=== PATIENT | male | born 1975 | race Caucasian/White ===

== ENCOUNTER 2019-02-21 20:17 | Inpatient (IN) | payer MEDICAID, OTHER ==
[~2019-02-21] VITALS: Ht 185.4 cm; Wt 111.1 kg
--- NOTE | 2019-02-21 20:23 | NUR ---
PT BIBA BLS TO [facility]
[2019-02-21 20:24] VITALS: BP 132/91
[2019-02-21] MEDS ORDERED: NACL 0.9% 1,000 ML IV ONE (20:27)
--- NOTE | 2019-02-21 20:43 | NUR ---
PT TX TO ER BED 8 VIA W/C
--- NOTE | 2019-02-21 21:14 | NUR ---
PT C/O BLOOD IN STOOL AND URINE X3 DAYS. PT ALSO STATES UNABLE TO AMBULATE DUE TO NUMBNESS IN LT SIDE FROM WAIST DOWN. PT STATES INCONTINENT SINCE NUMBNESS OCCURED. ABD PAIN W/ N/V/D. ABD SOUNDS X4 QUAD. PT SITTING IN BED PLEASANT. VSS AT THIS TIME MEDHX: ASTHMA, ANXIETY, SEIZURES, CARDIAC DISEASE ALLERGIES: TORADOL
--- NOTE | 2019-02-21 21:19 | NUR ---
DR. SMITH BEDSIDE EVALUATING PT
[2019-02-21] MEDS ORDERED: MORPHINE SULFATE 4 MG/ML SYR IVP ONE ×2 (21:25→23:10)
[2019-02-21] MEDS ORDERED: ONDANSETRON 4 MG/2 ML VIAL IVP ONE (21:25)
--- NOTE | 2019-02-21 21:32 | NUR ---
PT AMBULATED TO RESTROOM WITH EMT.
[2019-02-21 21:46] LABS: BASOPHILS % (AUTO) 0.2 % (0.0-2.0); EOSINOPHILS # (AUTO) 0.2 K/uL (0-0.4); EOSINOPHILS % (AUTO) 2.8 % (0.0-4.0); HEMATOCRIT 42.5 % (36-52); HEMOGLOBIN 14.2 g/dL (12.0-18.0); LYMPHOCYTES # (AUTO) 1.5 K/uL (2.0-11.5); LYMPHOCYTES % (AUTO) 25.3 % (20.5-51.1); MEAN CORPUSCULAR HEMOGLOBIN 29 pg (27-31); MEAN CORPUSCULAR HGB CONC 33 g/dL (33-37); MEAN CORPUSCULAR VOLUME 88.4 fL (80-94); MONOCYTES # (AUTO) 0.4 K/uL (0.8-1.0); MONOCYTES % (AUTO) 7.1 % (1.7-9.3); NEUTROPHILS # (AUTO) 3.9 K/uL (1.8-7.7); NEUTROPHILS % (AUTO) 64.6 % (42.2-75.2); PLATELET COUNT (AUTO) 216 K/uL (140-450); RED BLOOD CELL COUNT(AUTO) 4.81 MIL/uL (4.20-6.10); RED CELL DISTRIBUTION WIDTH 14.1 % (11.6-13.7); WHITE BLOOD COUNT (AUTO) 6.1 K/uL (4.8-10.8)
[2019-02-21 22:09] LABS: ANION GAP 13.9 (8-16); CREATININE 0.9 mg/dL (0.7-1.3); POTASSIUM 3.9 mmol/L (3.5-5.1)
[2019-02-21 22:13] LABS: PROTHROMBIN TIME 9.4 secs (10.8-13.4)
[2019-02-21 22:14] LABS: ALBUMIN 3.6 g/dL (3.4-5.0); TOTAL BILIRUBIN 0.2 mg/dL (0.0-1.0)
[2019-02-21 22:19] LABS: APPEARANCE,URINE CLEAR (CLEAR); BARBITURATE, URINE NEG. ng/ml (NEG <=200); BENZODIAZEPINE, URINE NEG. ng/mL (NEG <=200); BILIRUBIN,URINE NEGATIVE (NEGATIVE); BLOOD, URINE NEGATIVE (NEGATIVE); CANNABINOID, URINE NEG. ng/mL (NEG <=50); COCAINE, URINE NEG. ng/mL (NEG <=300); COLOR,URINE YELLOW (YELLOW); LEUKOCYTE ESTERASE ,URINE NEGATIVE (NEGATIVE); NITRITE, URINE NEGATIVE (NEGATIVE); OPIATE, URINE NEG. ng/mL (NEG <=2000); PHENCYCLIDINE SCREEN,URINE NEG. ng/mL (NEG <=25); UGLUCOSE NEGATIVE (NEGATIVE)
--- NOTE | 2019-02-22 01:19 | NUR ---
PT RESTING IN BED WITH EYES CLOSED. BED IN LOWEST POSITION, BOTH SIDE RAILS UP. VSS. WILL CONTINUE TO MONITOR.
--- NOTE | 2019-02-22 01:29 | NUR ---
PT TAKEN TO CT VIA [facility]
[2019-02-22] MEDS ORDERED: EPINEPHrine 1:1000 - 1 MG/ML AMP ONE (01:47)
--- NOTE | 2019-02-22 01:54 | NUR ---
PATIENT IN CT FOR A SCAN. CALLED TO ASSIST PATIENT WHO APPEARS TO BE HAVING AN ALLERGIC REACTION TO THE SCAN IODINE OMNIPAQUE DYE. GAVE PT A HHN BREATHING TREATMENT OF ALBUTEROL 2.5MG. HEART RATE PRE 75 SPO2 ON NRB MASK 97.
[2019-02-22] MEDS ORDERED: methylPREDNISolone SS 125 MG/2 ML VIAL ONE (01:57)
[2019-02-22] MEDS ORDERED: diphenhydrAMINE 50 MG/ML VIAL ONE (01:57)
[2019-02-22] MEDS ORDERED: methylPREDNISolone SS 125 MG/2 ML VIAL IVP ONE (02:00)
[2019-02-22] MEDS ORDERED: EPINEPHrine 1:1000 - 1 MG/ML AMP IM ONE (02:00)
[2019-02-22] MEDS ORDERED: ALBUTEROL 0.083% 2.5 MG/3 ML NEBU INH ONE (02:00)
[2019-02-22] MEDS ORDERED: diphenhydrAMINE 50 MG/ML VIAL IVP ONE (02:00)
[2019-02-22] MEDS ORDERED: NACL 0.9% 1,000 ML IV ONE (02:00)
--- NOTE | 2019-02-22 02:03 | NUR ---
PT APPEARS TO HAVE REACTION TO CONTRAST DURING CT. BENADRYL AND SOLU MEDROL GIVEN. PT STATES NO DIFFICULTY BREATHING AT THIS TIME. ARMS CONTINUE TO BE ITCHY
--- NOTE | 2019-02-22 02:27 | NUR ---
PT RETURNED FROM CT VIA [facility]. NO DIFFICULTY BREATHING, VSS. WILL CONTINUE TO MONITOR
--- NOTE | 2019-02-22 02:34 | NUR ---
PT STATES HE CONTINUES TO BE ITCHY ON ARMS BILATERALLY. DR SMITH MADE AWARE.
--- NOTE | 2019-02-22 03:18 | NUR ---
02 SAT 90. PT PLACED ON 2L NC AT THIS TIME. O2 97% AT THIS TIME. WILL CONTINUE TO MONITOR.
[2019-02-22] MEDS ORDERED: ACETAMINOPHEN 325 MG TAB PO PRN (04:20)
[2019-02-22] MEDS ORDERED: KETOROLAC 30 MG/ML VIAL IVP PRN (04:20)
[2019-02-22] MEDS ORDERED: ONDANSETRON 4 MG/2 ML VIAL IM/IVP PRN (04:20)
[2019-02-22] MEDS ORDERED: HYDROcodone/APAP 7.5/325 MG 1 TAB PO PRN (04:20)
--- NOTE | 2019-02-22 06:32 | NUR ---
PT RESTING IN BED WITH EYES CLOSED, HOB DOWN. X2 SIDE RAILS. VSS. WILL CONTINUE TO MONITOR
[2019-02-22 07:17] LABS: CHOL/HDL RATIO 4.1 (1-4.5); FREE T4 (FREE THYROXINE) 0.71 ng/dL (0.76-1.46); PHOSPHORUS 4.1 mg/dL (2.5-4.9); THYROID STIMULATING HORMONE 4.58 uIU/mL (0.34-3.74)
[2019-02-22 07:50] VITALS: BP 116/73
--- NOTE | 2019-02-22 07:50 | NUR ---
RECEIVED REPORT FROM EMERGENCY ROOM NURSE FOR CONTINUITY OF CARE. PT IN STABLE CONDITION. RESPIRATIONS EVEN AND UNLABORED, ROOM AIR. IV INTACT AND PATENT. SAFETY MEASURES IN PLACE. BED IN LOW POSITION. BED ALARM ON. CALL LIGHT AT BEDSIDE. WILL CONTINUE TO MONITOR.
--- NOTE | 2019-02-22 07:55 | NUR ---
Patient will be admitted to care of DR. WHELAN. Admited to MS. Will go to room 105-A. Belongings list completed. Report to SHAI ENGEL.
--- NOTE | 2019-02-22 08:24 | NUR ---
PATIENT HAS BEEN SCREENED AND CATEGORIZED LOW NUTRITION RISK. PATIENT WILL BE SEEN WITHIN 7 DAYS OF ADMISSION. 02/28/[address]
--- NOTE | 2019-02-22 08:42 | NUR ---
PT REFUSED HEAD CT AT THIS TIME. WILL TRY AGAIN. PT IN STABLE CONDITION.
--- NOTE | 2019-02-22 10:15 | NUR ---
PT SLEEPING IN STABLE CONDITION. RESPIRATIONS EVEN AND UNLABORED. BED IN LOW POSITION. CALL LIGHT AT BEDSIDE. WILL CONTINUE TO MONITOR.
--- NOTE | 2019-02-22 11:03 | NUR ---
SW was unable to complete assessment with patient because patient was receiving a CT Scan, per Charge Nurse. SW will follow up as needed.
[2019-02-22] MEDS: NACL 0.9% 1,000 ML IV SCH ×2 (11:28→21:00)
[2019-02-22] MEDS: MORPHINE SULFATE 2 MG/ML SYR IVP PRN ×3 (11:44→20:50)
[2019-02-22] MEDS ORDERED: GABAPENTIN 300 MG CAP PO SCH (12:00)
--- NOTE | 2019-02-22 12:17 | NUR ---
FAXED MEDICAL RECORDS AUTHORIZATION TO [facility] [phone]
--- NOTE | 2019-02-22 14:22 | NUR ---
PT WALKING AROUND UNIT IN STABLE CONDITION.
[2019-02-22] MEDS ORDERED: LIDOCAINE OINTMENT 5% 35 GM TUBE TP SCH (15:20)
--- NOTE | 2019-02-22 15:50 | NUR ---
P.T. NOTES P.T. SHAY COMPLETED; PATIENT MAY AMBULATE AD MURALI. Addendum: 02/22/19 at 1550 by Jesika Tuttle PT Amended: Links added.
[2019-02-22 16:00] VITALS: BP 126/74
[2019-02-22] MEDS: HYDROcodone/APAP 7.5/325 MG 1 TAB PO SCH ×2 (16:00→20:00)
--- NOTE | 2019-02-22 16:00 | NUR ---
WILL TAKE NORCO AT 2000 SCHEDULED DOSE DUE TO MORPHINE REQUESTED AND GIVEN PER PT REQUEST.
[2019-02-22] MEDS: WARFARIN 5 MG TAB PO SCH (17:58)
[2019-02-22] MEDS: BACLOFEN 10 MG TAB PO SCH (18:09)
--- NOTE | 2019-02-22 18:55 | NUR ---
[facility] FOR SANDWICH PER PT REQUEST. PT IN STABLE CONDITION.
--- NOTE | 2019-02-22 19:22 | NUR ---
GAVE REPORT TO SACK SORTER NURSE ERIN FOR CONTINUITY OF CARE. PT IN STABLE CONDITION.
--- NOTE | 2019-02-22 19:23 | NUR ---
RECD. SITTING ON BED, AWAKE, A/OX4. WATCHING TV. RESPIRATION EVEN AND UNLABORED. IV OF NS AT 60 ML/HR INFUSING, RIGHT IJ. INDEPENDENT, AMBULATORY TO BR. PLAN OF CARE FOR THE SHIFT DISCUSSED. VERBALIZED UNDERSTANDING. DENIES PAIN 0/10.
[2019-02-22 20:00] VITALS: BP 117/75
--- NOTE | 2019-02-22 20:00 | NUR ---
AMBULATED IN THE HALLWAY FOR 5 MINUTES.
--- NOTE | 2019-02-22 20:00 | NUR ---
REFUSED SCHEDULED NORCO, PREFERS MORPHINE, STATED NORCO DOES NOT WORK MUCH FOR HIM.
[2019-02-22] MEDS: GABAPENTIN 300 MG CAP PO SCH (20:47)
--- NOTE | 2019-02-22 21:30 | NUR ---
DISCUSSED AND REVIEWED CARE PLAN WITH ERIN SIMON LVN.
[2019-02-23] VITALS: BP 132/79
--- NOTE | 2019-02-23 | NUR ---
REFUSED NORCO, WANTS MORPHINE.
[2019-02-23] MEDS: MORPHINE SULFATE 2 MG/ML SYR IVP PRN ×5 (00:24→18:08)
--- NOTE | 2019-02-23 01:00 | NUR ---
SLEEPING COMFORTABLY IN BED.
[2019-02-23 04:00] VITALS: BP 125/72
--- NOTE | 2019-02-23 05:03 | NUR ---
OFFERED SCHEDULED NORCO AND FINALLY ACCEPTED.
[2019-02-23] MEDS: HYDROcodone/APAP 7.5/325 MG 1 TAB PO SCH ×6 (05:08→21:12)
[2019-02-23] MEDS: NACL 0.9% 1,000 ML IV SCH ×2 (05:13→13:57)
--- NOTE | 2019-02-23 06:50 | NUR ---
INFORMED DR. PALACIOS PATIENT PREFERS MORPHINE THAN NORCO BUT HAVE 2 DOSES OF MORPHINE AND 1 NORCO.
--- NOTE | 2019-02-23 07:25 | NUR ---
CONDITION REMAIN STABLE. ENDORSED TO AM SHIFT NURSE FOR CONTINUITY OF CARE.
--- NOTE | 2019-02-23 07:27 | NUR ---
RECEIVED BEDSIDE REPORT FROM OPHTHALMIC MEDICAL ASSISTANT NURSE FOR CONTINUITY OF CARE. PATIENT IS RESTING ON BED.AROUSABLE TO VOICE. EVEN AND UNLABORED CHEST RISES ON RA NOTED. NO SIGNS OF DISTRESS NOTED. IV CLEAN AND INTACT, INFUSING PER MD ORDER. SKIN CLEAN AND DRY. SAFETY MEASURES IN PLACE. BED IN LOW POSITION AND CALL LIGHT WITHIN REACH.
[2019-02-23 08:00] VITALS: BP 107/75
[2019-02-23] MEDS ORDERED: DEXAMETHASONE 4 MG/ML VIAL IVP SCH (08:00)
--- NOTE | 2019-02-23 08:08 | NUR ---
VITAL SIGNS TAKEN. PATIENT AAOX4, ABLE TO COMMUNICATE APPROPRIATELY. PATIENT AWAKE AND COMPLAINING HE HAS PAIN 7/10 ON HIS BACK. WILL MEDICATED. PATIENT IS ABLE TO AMBULATE WITH STEADY GAIT AND CONTINENT. DISCUSSED PLAN OF CARE WITH PATIENT AND PATIENT VERBALIZED UNDERSTANDING. SAFETY MEASURES IN PLACE. BED IN LOW POSITION AND CALL LIGHT WITHIN REACH. INSTRUCTED PATIENT TO USE THE CALL LIGHT FOR ANY ASSISTANCE AND PATIENT WAS AWARE.
[2019-02-23] MEDS: BACLOFEN 10 MG TAB PO SCH ×3 (08:20→17:22)
[2019-02-23] MEDS: GABAPENTIN 300 MG CAP PO SCH ×2 (08:20→21:16)
--- NOTE | 2019-02-23 08:22 | NUR ---
ADMINISTERED SCHEDULE AM MEDS PER MD ORDER, PATIENT REFUSED TO TAKE NORCO AND STATED "IT DOESN'T HELP WITH MY PAIN. MY PAIN IS SEVERE." MEDICATIONS EDUCATION PROVIDED TO PATIENT AND PATIENT VERBALIZED UNDERSTANDING. MEDICATED PATIENT WITH PRN MORPHINE FOR 7/10 PAIN ON HIS BACK, PATIENT SAID "THE PAIN IS HEAVY, ACHING, AND SEVERE. I CANNOT REST WITH PAIN GOING ON LIKE THIS." PATIENT IS AWAKE AND RESTING ON BED AT THIS TIME. SAFETY MEASURES IN PLACE. BED IN LOW POSITION AND CALL LIGHT WITHIN REACH. INSTRUCTED PATIENT TO USE THE CALL LIGHT FOR ANY ASSISTANCE AND PATIENT SAID OK.
--- NOTE | 2019-02-23 09:50 | NUR ---
PATIENT IS WATCHING TV ON BED AT THIS TIME. NO SIGNS OF DISTRESS NOTED. SAFETY MEASURES IN PLACE. BED IN LOW POSITION AND CALL LIGHT WITHIN REACH.
[2019-02-23] MEDS ORDERED: traZODone 50 MG TAB PO PRN (10:00)
--- NOTE | 2019-02-23 10:02 | NUR ---
DISCHARGE PLANNING: CONTACTED [facility] AT [phone], ABLE TO SPEAK TO ARACELI (ADMISSIONS) REGARDING INQUIRY. SHE STATED TO FAX REFERRAL TO [phone]. REFERRAL SENT TO PROVIDED NUMBER. Addendum: 02/23/19 at 1205 by Jamilah Montoya CM PER LORI GUTIERREZ [facility], THEY ARE UNABLE TO ACCEPT THE PATIENT DUE TO LIVING SITUATION. Addendum: 02/23/19 at 1206 by Jamilah Montoya CM DR. PALACIOS MADE AWARE.
--- NOTE | 2019-02-23 11:15 | NUR ---
PATIENT REQUESTED FOR A TUNA SANDWICH, CALLED FNS AND THEY WILL SEND IT TO PATIENT'S ROOM. PATIENT AWAKE ANS RESTING ON BED AT THIS TIME. NO SIGNS OF DISTRESS NOTED. SAFETY MEASURES IN PLACE. BED IN LOW POSITION AND CALL LIGHT WITHIN REACH. INSTRUCTED PATIENT TO USE THE CALL LIGHT FOR ANY ASSISTANCE AND PATIENT WAS AWARE.
[2019-02-23] MEDS: LIDOCAINE 5% 1 EA PATCH TP SCH (11:55)
[2019-02-23 11:56] LABS: BASOPHILS % (AUTO) 0.2 % (0.0-2.0); EOSINOPHILS % (AUTO) 0.2 % (0.0-4.0); HEMATOCRIT 42.2 % (36-52); LYMPHOCYTES % (AUTO) 11.4 % (20.5-51.1); MEAN CORPUSCULAR HEMOGLOBIN 30 pg (27-31); MEAN CORPUSCULAR HGB CONC 33 g/dL (33-37); MONOCYTES # (AUTO) 0.5 K/uL (0.8-1.0); MONOCYTES % (AUTO) 5.9 % (1.7-9.3); NEUTROPHILS # (AUTO) 7.3 K/uL (1.8-7.7); NEUTROPHILS % (AUTO) 82.3 % (42.2-75.2); PLATELET COUNT (AUTO) 206 K/uL (140-450); RED BLOOD CELL COUNT(AUTO) 4.74 MIL/uL (4.20-6.10); RED CELL DISTRIBUTION WIDTH 14.5 % (11.6-13.7); WHITE BLOOD COUNT (AUTO) 8.9 K/uL (4.8-10.8)
--- NOTE | 2019-02-23 12:00 | NUR ---
ADMINISTERED SCHEDULE LIDOCAINE PATCH PER MD ORDER, APPLIED ON SACRAL AREA, MED EDUCATION PROVIDED TO PATIENT AND PATIENT VERBALIZED UNDERSTANDING.PATIENT REFUSED TO TAKE NORCO AND MEDICATION EDUCATION PROVIDED TO PATIENT AND PATIENT VERBALIZED UNDERSTANDING, BUT INSISTING DON'T WANT TO TAKE NORCO AND SAID "MY LOWER BACK PAIN IS VERY BAD LIKE A 9, NORCO DOESN'T HELP WITH MY PAIN." MEDICATED PATIENT WITH PRN MORPHINE FOR 9/10 PAIN ON HIS BACK, PATIENT IS EATING HIS LUNCH AT THIS TIME. SAFETY MEASURES IN PLACE. BED IN LOW POSITION AND CALL LIGHT WITHIN REACH. INSTRUCTED PATIENT TO USE THE CALL LIGHT FOR ANY ASSISTANCE AND PATIENT VERBALIZED OK.
[2019-02-23 12:05] LABS: ANION GAP 10.9 (8-16); CARBON DIOXIDE 26.7 mmol/L (21-32); CREATININE 0.8 mg/dL (0.7-1.3); POTASSIUM 4.6 mmol/L (3.5-5.1); PROTHROMBIN TIME 10.3 secs (10.8-13.4)
[2019-02-23 12:08] LABS: MAGNESIUM 1.9 mg/dL (1.8-2.4); PHOSPHORUS 2.9 mg/dL (2.5-4.9)
[2019-02-23] MEDS: DEXAMETHASONE 4 MG/ML VIAL IVP SCH ×2 (13:56→21:02)
--- NOTE | 2019-02-23 13:57 | NUR ---
ADMINISTERED MEDS PER MD ORDER, PATIENT TOLERATED WELL. MEDS EDUCATION PROVIDED TO PATIENT AND PATIENT VERBALIZED UNDERSTANDING. PATIENT AWAKE AND EATING TUNAS SANDWICH AT THIS TIME. NO SIGNS OF DISTRESS NOTED. SAFETY MEASURES IN PLACE. BED IN LOW POSITION AND CALL LIGHT WITHIN REACH. INSTRUCTED PATIENT TO USE THE CALL LIGHT FOR ANY ASSISTANCE AND PATIENT WAS AWARE.
--- NOTE | 2019-02-23 15:00 | NUR ---
PATIENT COMPLAINED HE HAS STABBING, HEAVY PAIN ON HIS LOWER BACK 8/10, MEDICATED PATIENT WITH PRN MORPHINE, PATIENT IS AWAKE AND RESTING ON BED AT THIS TIME. SAFETY MEASURES IN PLACE. BED IN LOW POSITION AND CALL LIGHT WITHIN REACH. INSTRUCTED PATIENT TO USE THE CALL LIGHT FOR ANY ASSISTANCE AND PATIENT VERBALIZED UNDERSTANDING.
--- NOTE | 2019-02-23 15:50 | NUR ---
PATIENT REQUESTED FOR TUNA SANDWICH, PAGED FNS AND FNS WILL DELIVER TO PATIENT'S ROOM. PATIENT IS AWAKE AND WATCHING TV ON BED. NO SIGNS OF DISTRESS NOTED. SAFETY MEASURES IN PLACE. BED IN LOW POSITION AND CALL LIGHT WITHIN REACH. INSTRUCTED PATIENT TO USE THE CALL LIGHT FOR ANY ASSISTANCE AND PATIENT WS AWARE.
[2019-02-23 16:00] VITALS: BP 114/70
[2019-02-23] MEDS: WARFARIN 5 MG TAB PO SCH (17:21)
--- NOTE | 2019-02-23 17:22 | NUR ---
ADMINISTERED MEDS PER MD ORDER, PATIENT TOLERATED WELL. EDUCATED PATIENT ON TAKING COUMADIN HAS RISK OF BLEEDINGS, AND INSTRUCTED PATIENT TO REPORT ANY SORT OF BLEEDING SUCH GUMS, REDDENED EYES IMMEDIATELY, PATIENT VERBALIZED UNDERSTANDING. PATIENT REFUSED TO TAKE NORCO, AND STATED "NOPE, I DON'T WANT IT JUST LIKE WHAT I TOLD YOU BEFORE." PATIENT AWAKE AND WATCHING TV ON BED AT THIS TIME. NO SIGNS OF DISTRESS NOTED. SAFETY MEASURES IN PLACE. BED IN LOW POSITION AND CALL LIGHT WITHIN REACH. INSTRUCTED PATIENT TO USE THE CALL LIGHT FOR ANY ASSISTANCE AND PATIENT SAID OK.
--- NOTE | 2019-02-23 18:08 | NUR ---
PATIENT COMPLAINED HE HAS 7/10 LOW BACK PAIN, MEDICATED PATIENT WITH PRN MORPHINE, PATIENT IS AWAKE AND RESTING ON BED AT THIS TIME. SAFETY MEASURES IN PLACE. BED IN LOW POSITION AND CALL LIGHT WITHIN REACH. INSTRUCTED PATIENT TO USE THE CALL LIGHT FOR ANY ASSISTANCE AND PATIENT VERBALIZED UNDERSTANDING.
[2019-02-23] MEDS ORDERED: CLOPIDOGREL 75 MG TAB PO SCH (18:30)
[2019-02-23] MEDS ORDERED: ASPIRIN 81 MG TAB.CHEW PO SCH (18:30)
--- NOTE | 2019-02-23 18:31 | NUR ---
ADMINISTERED SCHEDULED MEDS PER MD ORDER, MEDS EDUCATION PROVIDED TO PATIENT AND PATIENT VERBALIZED UNDERSTANDING. PATIENT AWAKE AND WATCHING TV ON BED AT THIS TIME. NO SIGNS OF DISTRESS NOTED. SAFETY MEASURES IN PLACE. BED IN LOW POSITION AND CALL LIGHT WITHIN REACH. INSTRUCTED PATIENT TO USE THE CALL LIGHT FOR ANY ASSISTANCE AND PATIENT WAS AWARE.
--- NOTE | 2019-02-23 19:15 | NUR ---
ENDORSED PATIENT AT BEDSIDE TO GRINDER SET UP OPERATOR UNIVERSAL NURSE FOR CONTINUITY OF CARE. PATIENT IS IN STABLE CONDITION. SAFETY MEASURES IN PLACE.
--- NOTE | 2019-02-23 19:16 | NUR ---
RECD. RESTING IN BED, AWAKE, A/OX4. RESPIRATION EVEN AND UNLABORED. IV OF NS AT 60 ML/HR INFUSING, RIGHT IJ G20. STATED FEELING BETTER WHEN INQUIRED HOW HE IS TODAY. AWARE OF THE PLAN TO TRANSFER HIM TO SNF. PLAN OF CARE FOR THE SHIFT DISCUSSED. VERBALIZED UNDERSTANDING. DENIES PAIN 0/10.
--- NOTE | 2019-02-23 19:30 | NUR ---
Patient's Plan of Care was discussed and reviewed with CERTIFIED RESIDENTIAL MEDICATION AIDE: AUGUSTINA
[2019-02-23] MEDS ORDERED: BACL10TA4 PO (20:18)
[2019-02-23] MEDS ORDERED: ASPI81CT95 PO (20:18)
[2019-02-23] MEDS ORDERED: CLOP75TA55 PO (20:18)
[2019-02-23] MEDS ORDERED: GABA-638 PO (20:18)
[2019-02-23] MEDS ORDERED: LID5T TP (20:18)
--- NOTE | 2019-02-23 21:12 | NUR ---
WANTS TO SLEEP EARLY, MEDICATED WITH TRAZODONE ORDERED BY .
--- NOTE | 2019-02-23 22:12 | NUR ---
SLEEPING COMFORTABLY IN BED.
--- NOTE | 2019-02-23 23:55 | NUR ---
WOKE, AMBULATED TO NURSES STATION, INQUIRING ABOUT HIS PAIN MEDICATION. ADVISED TO GO BACK TO ROOM AND WILL BE MEDICATED.
[2019-02-23 23:57] VITALS: BP 122/81
[2019-02-24] MEDS: MORPHINE SULFATE 2 MG/ML SYR IVP PRN ×4 (00:07→19:00)
[2019-02-24] MEDS: DEXAMETHASONE 4 MG/ML VIAL IVP SCH ×4 (02:42→20:27)
[2019-02-24 04:00] VITALS: BP 117/72
[2019-02-24] MEDS: HYDROcodone/APAP 7.5/325 MG 1 TAB PO SCH ×6 (04:00→20:27)
--- NOTE | 2019-02-24 04:50 | NUR ---
SLEEPING IN BED, WAKEN UP FOR SCHEDULED NORCO. REFUSED NORCO, STATED "IF I AM ASLEEP DON'T GIVE ME MEDICATION, ONLY WHEN I AM AWAKE." CONTINUED SLEEPING.
[2019-02-24] MEDS: NACL 0.9% 1,000 ML IV SCH ×2 (06:25→23:00)
--- NOTE | 2019-02-24 06:47 | NUR ---
STILL SLEEPING COMFORTABLY IN BED. CONDITION REMAIN STABLE. WILL ENDORSED TO AM NURSE FOR CONTINUITY OF CARE.
--- NOTE | 2019-02-24 07:00 | NUR ---
RECEIVED PATIENT FROM CORE MICROARCHITECT RN. PATIENT IS FULL CODE, ALLERGIES TO TORADOL AND MEPERIDINE. AAOX4, ROOM AIR, AMBULATORY. PATIENT HAS A RIGHT IJ. SKIN IS INTACT. PATIENT IS SLEEPING AT THIS TIME. VISIBLE CHEST RISE AND FALL, NO SIGNS OF RESP DISTRESS. WILL CONTINUE WITH CURRENT PLAN OF CARE.
[2019-02-24] MEDS: GABAPENTIN 300 MG CAP PO SCH ×2 (08:40→20:27)
[2019-02-24] MEDS: CLOPIDOGREL 75 MG TAB PO SCH (08:40)
[2019-02-24] MEDS: ASPIRIN 81 MG TAB.CHEW PO SCH (08:40)
[2019-02-24] MEDS: BACLOFEN 10 MG TAB PO SCH ×3 (08:41→16:20)
--- NOTE | 2019-02-24 08:45 | NUR ---
ADMINISTERED MORNING MEDICATION. PATIENT REFUSED MORNING DOSE OF NORCO. ADMINISTERED MORPHINE FOR PAIN 12/11. VITAL SIGNS WNL PRIOR TO RX ADMINISTRATION. WILL RE-ASSESS.
[2019-02-24] MEDS: LIDOCAINE 5% 1 EA PATCH TP SCH (08:46)
--- NOTE | 2019-02-24 11:38 | NUR ---
DC PLANNING: JOSE FAXED TRANSFER REQUEST CLINICAL PACKET TO [facility] OPT. 3 AND TO [facility] CM TO FOLLOW UP NEEDED. Addendum: 02/24/19 at 1328 by Jamilah Slade CM RECEIVED A CALL FROM DAMASO AT TRANSFER CENTER AT [facility] @ . PER DAMASO, THEY CANNOT ACCEPT THE PATIENT DUE TO PATIENT HAS SURGERY 4 MONTHS AGO AT [facility]. THEY SUGGEST PATIENT TO GO BACK FOR CONTINUATION OF CARE. Addendum: 02/24/19 at 141 by Jamilah Slade CM CM FAXED TRANSFER REQUEST TO [facility] . CM TO FOLLOW UP NEEDED. Addendum: 02/24/19 at 1528 by Jamilah Slade CM CONTACTED [facility] @ TO FOLLOW UP WITH TRANSFER REQUEST. SPOKE WITH CRISTY, WHO OBTAINED INFORMATION FROM . JOSE TO FOLLOW UP NEEDED.
--- NOTE | 2019-02-24 14:40 | NUR ---
ADMINISTERED MORPHINE IVP FOR PAIN 12/11.
--- NOTE | 2019-02-24 14:46 | NUR ---
SPOKE TO PATIENT ABOUT REFUSING AM LABS. PATIENT STATED "AT 4 IN THE MORNING I CANT REFUSE?" INFORMED PATIENT THAT THIS IS A HOSPITAL AND NOT A HOTEL. PATIENT AGREED AND AGREED TO HAVING AM LABS DRAWN NOW. SPOKE TO LAB REGARDING THE MATTER.
[2019-02-24 15:13] LABS: BASOPHILS % (AUTO) 0.1 % (0.0-2.0); HEMATOCRIT 42.7 % (36-52); HEMOGLOBIN 14.1 g/dL (12.0-18.0); LYMPHOCYTES # (AUTO) 1.2 K/uL (2.0-11.5); LYMPHOCYTES % (AUTO) 8.2 % (20.5-51.1); MEAN CORPUSCULAR HEMOGLOBIN 29 pg (27-31); MEAN CORPUSCULAR HGB CONC 33 g/dL (33-37); MONOCYTES # (AUTO) 0.7 K/uL (0.8-1.0); MONOCYTES % (AUTO) 4.8 % (1.7-9.3); NEUTROPHILS # (AUTO) 13.2 K/uL (1.8-7.7); NEUTROPHILS % (AUTO) 86.9 % (42.2-75.2); PLATELET COUNT (AUTO) 252 K/uL (140-450); RED BLOOD CELL COUNT(AUTO) 4.85 MIL/uL (4.20-6.10); WHITE BLOOD COUNT (AUTO) 15.1 K/uL (4.8-10.8)
[2019-02-24 15:26] LABS: ANION GAP 11.7 (8-16); CARBON DIOXIDE 28.4 mmol/L (21-32); CREATININE 0.8 mg/dL (0.7-1.3); POTASSIUM 4.1 mmol/L (3.5-5.1)
[2019-02-24 15:30] LABS: MAGNESIUM 1.9 mg/dL (1.8-2.4); PHOSPHORUS 3.7 mg/dL (2.5-4.9)
[2019-02-24 15:35] LABS: PROTHROMBIN TIME 10.2 secs (10.8-13.4)
--- NOTE | 2019-02-24 15:40 | NUR ---
PT RESTING QUIETLY IN BED. FAXED [facility] AGAIN FOR MEDICAL RECORDS OF THE PATIENT. NO COMPLAINTS AT THIS TIME.
[2019-02-24 16:00] VITALS: BP 105/66
--- NOTE | 2019-02-24 19:00 | NUR ---
ADMINISTERED MORPHINE FOR PAIN 12/11. WILL ENDORSE TO EDGE BANDING OFF BEARER
--- NOTE | 2019-02-24 19:32 | NUR ---
RECEIVED BEDSIDE REPORT FROM DAY SHIFT NURSE. PATIENT IS AWAKE, ALERT, AND COOPERATIVE. RESPIRATION EVEN UNLABORED ON ROOM AIR. NO DISTRESS NOTED. SKIN IS WARM AND DRY. IV PATENT AND INTACT. DENIES PAIN. PLAN OF CARE WAS DISCUSSED. ALL SAFETY MEASURES IN PLACE. BED IS AT LOW POSITION. CALL LIGHT WITHIN REACH AND VERBALIZES ITS USE. WILL CONTINUE TO MONITOR.
--- NOTE | 2019-02-24 20:30 | NUR ---
ALL SCHEDULED MEDS WERE GIVEN PER ORDER. NO ASE NOTED. WILL CONTINUE TO MONITOR.
--- NOTE | 2019-02-24 20:46 | NUR ---
PATIENT REFUSED REASSESSMENT FOR LIDOCAINE PATCH. PATIENT STATED THAT IT WAS REMOVED EARLIER WHEN HE WAS SHOWERING. EDUCATED THE RISK AND BENEFITS OF IT X2 STILL REFUSED. WILL CONTINUE TO MONITOR
[2019-02-24] MEDS ORDERED: LORazepam 2 MG/ML VIAL IVP PRN (21:00)
--- NOTE | 2019-02-24 21:03 | NUR ---
PATIENT COMPLAINING OF FEELING ANXIOUS. NOTIFIED MD REGARDING THE SITUATION. AWAITING FOR HIS ORDER
--- NOTE | 2019-02-24 21:05 | NUR ---
PATIENT IS WALKING AROUND THE NURSING STATION A LITTLE UNSTABLE. PATIENT STATED HIS DIZZY AND ANXIOUS. ASSIST PATIENT TO HIS BEDROOM AND INSTRUCT HIM TO STAY IN BED. WILL CONTINUE TO MONITOR.
--- NOTE | 2019-02-24 21:34 | NUR ---
DR. NAGY ORDER ATIVAN FOR PATIENT FOR ANXIETY. ADMINISTERED TO PATIENT. WILL MONITOR ITS EFFECTIVENESS
--- NOTE | 2019-02-24 22:30 | NUR ---
CHECKED ON PATIENT. PATIENT SLEEPING RESPIRATION EVEN UNLABORED ON ROOM AIR. NO DISTRESS NOTED. WILL CONTINUE TO MONITOR.
[2019-02-25] VITALS: BP 138/90
--- NOTE | 2019-02-25 | NUR ---
VITALS WERE TAKEN. PATIENT SLEEPING. NO DISTRESS NOTED. WILL CONTINUE TO MONITOR.
--- NOTE | 2019-02-25 00:30 | NUR ---
NORCO NOT GIVEN DUE TO PATIENT SLEEPING COMFORTABLY. RESPIRATION EVEN UNLABORED ON ROOM AIR.
[2019-02-25] MEDS: DEXAMETHASONE 4 MG/ML VIAL IVP SCH ×3 (01:29→13:58)
[2019-02-25] MEDS: MORPHINE SULFATE 2 MG/ML SYR IVP PRN ×3 (01:30→09:50)
--- NOTE | 2019-02-25 01:30 | NUR ---
PATIENT WOKE UP FROM BACK PAIN 12/11. ADMINISTERED PRN PAIN MED PER ORDER. WILL CONTINUE TO MONITOR.
--- NOTE | 2019-02-25 02:17 | NUR ---
CHECKED ON PATIENT. PATIENT SLEEPING RESPIRATION EVEN UNLABORED ON ROOM AIR. NO DISTRESS NOTED. WILL CONTINUE TO MONITOR.
--- NOTE | 2019-02-25 03:30 | NUR ---
PATIENT IS WALKING AROUND THE DIEHL WAY. PATIENT LOOKS SLEEPY. ADVISED TO GO TO HIS ROOM AND SLEEP. PATIENT REFUSED. HE CONTINUE WALKS AROUND THE DIEHL WAY. WILL MONITOR.
--- NOTE | 2019-02-25 03:52 | NUR ---
CHARGE NURSE TOLD PATIENT TO GO TO HIS ROOM FOR HIS SAFETY. PATIENT DID NOT LISTEN. CONTINUE TO WALK AROUND THE DIEHL WAY.
[2019-02-25] MEDS: HYDROcodone/APAP 7.5/325 MG 1 TAB PO SCH ×5 (04:13→16:47)
--- NOTE | 2019-02-25 05:21 | NUR ---
PATIENT COMPLAINED OF LOWER BACK PAIN 12/11. PRN PAIN MED ADMINISTERED PER ORDER. WILL CONTINUE TO MONITOR.
[2019-02-25 06:18] LABS: HEMATOCRIT 43.8 % (36-52); HEMOGLOBIN 14.5 g/dL (12.0-18.0); MEAN CORPUSCULAR HEMOGLOBIN 29 pg (27-31); MEAN CORPUSCULAR HGB CONC 33 g/dL (33-37); PLATELET COUNT (AUTO) 261 K/uL (140-450); RED BLOOD CELL COUNT(AUTO) 4.98 MIL/uL (4.20-6.10); RED CELL DISTRIBUTION WIDTH 14.1 % (11.6-13.7); WHITE BLOOD COUNT (AUTO) 16.2 K/uL (4.8-10.8)
--- NOTE | 2019-02-25 06:31 | NUR ---
PATIENT REQUEST TO BE DISCONNECTED FROM IV FLUIDS. EDUCATED THE RISK AND BENEFIT X1 STILL WANTS TO BE DISCONNECTED FOR JUST FEW HOURS. WILL CONTINUE TO MONITOR.
[2019-02-25 06:54] LABS: CARBON DIOXIDE 27.3 mmol/L (21-32); CREATININE 0.7 mg/dL (0.7-1.3); POTASSIUM 4.3 mmol/L (3.5-5.1)
[2019-02-25 06:57] LABS: MAGNESIUM 1.8 mg/dL (1.8-2.4); PHOSPHORUS 3.7 mg/dL (2.5-4.9)
--- NOTE | 2019-02-25 07:00 | NUR ---
RECEIVED PATIENT FROM FREIGHT TEAM ASSOCIATE RN. PATIENT IS AWAKE IN BED. AAOX4, ON ROOM AIR. PATIENT IS CURRENTLY DISCONNECTED FROM IV PER REQUEST, WITH AN IV LINE TO RIGHT IJ. FULL CODE, ALLERGIES TO TORADOL AND MEPERIDINE. WILL CONTINUE WITH PLAN OF CARE FOR THE DAY.
[2019-02-25 07:08] LABS: PROTHROMBIN TIME 9.9 secs (10.8-13.4)
--- NOTE | 2019-02-25 07:14 | NUR ---
ENDORSED PATIENT TO DAY SHIFT NURSE. PATIENT IN STABLE CONDITION.
[2019-02-25 08:00] VITALS: BP 143/97
[2019-02-25] MEDS: ASPIRIN 81 MG TAB.CHEW PO SCH (08:49)
[2019-02-25] MEDS: CLOPIDOGREL 75 MG TAB PO SCH (08:50)
[2019-02-25] MEDS: GABAPENTIN 300 MG CAP PO SCH (08:50)
[2019-02-25] MEDS: LIDOCAINE 5% 1 EA PATCH TP SCH (08:51)
[2019-02-25] MEDS: BACLOFEN 10 MG TAB PO SCH ×3 (08:52→16:47)
--- NOTE | 2019-02-25 09:08 | NUR ---
PATIENT REFUSED TO BE RE CONNECTED TO IV TUBING FOR IV FLUID AND STATED "I DON'T UNDERSTAND WHY I NEED THAT IF IM DRINKING WATER". PATIENT ALSO C/O OF BEING WOKEN UP FOR MORNING MEDICATION.
--- NOTE | 2019-02-25 09:51 | NUR ---
ADMINISTERED MORPHINE FOR PAIN 12/11.
--- NOTE | 2019-02-25 10:25 | NUR ---
CALL PLACE TO [facility] TALKED TO MARY LOU THAT WE NEED TO TRANSFER PATIENT [facility], AMRY LOU GAVE ME A NEW NUMBER [facility] HOSPITALIST [phone] NICHOLAS SAID THEY WILL BE THE ONE TO RUN THE CASE AND DECIDE WHO WILL BE THE ACCEPTING DOCTOR.
--- NOTE | 2019-02-25 10:36 | NUR ---
CALL PLACE TO [facility] HOSPITALIST SPOKE TO SAMIRA, HE SAID HE WILL GET IN TOUCH WITH DR. GARCIA AND WILL CALL US BACK.
[2019-02-25 10:55] LABS: LYMPHOCYTES % (MANUAL) 7 % (20-46); MONOCYTES % (MANUAL) 3 % (5-12)
--- NOTE | 2019-02-25 11:11 | NUR ---
DC PLANNING: CM FOLLOW UP CALL MADE TO [facility] @ Opt 2 then OPT 3. SPOKE WITH DONALD, WHO STATED THAT THEIR TRANSFER NURSE HAS SPOKE WITH PT'S NURSE LAST NIGHT REGARDING TRANSFER. PT'S NURSE HAS STATED PT IS GOING TO [facility] AND CANCELLED THE TRANSFER REQUEST. CM EXPLAINED TO DONALD ([facility] TRANSFER NURSE) THAT PATIENT STATED HE HAS BEEN AT [facility] ON NOVEMBER AND HAD SURGERY. WE HAVE REQUESTED PATIENT TO BE TRANSFERRED BACK TO [facility] BUT HAS NOT BEEN ACCEPTED YET AT THIS TIME. PER DONALD, CM HAS TO FAXED NEW TRANSFER REQUEST TO [facility] AGAIN THE REQUEST YESTERDAY HAS BEEN CANCELLED. CM FAXED TRANSFER REQUEST AGAIN TO [facility] @ F b Addendum: 02/25/19 at 1220 by Jamilah Slade CM RECEIVED A CALL FROM DONALD AT [facility]. STATED THAT THEY CANNOT ACCEPT PATIENT. THEIR DOCTOR DR. MELENDEZ HAS DECLINED PATIENT. Addendum: 02/25/19 at 1411 by Jamilah Slade CM LATE ENTRY: JOSE HAS ALSO FAXED TRANSFER REQUEST TO [facility] AND TO [facility] AT [facility]
--- NOTE | 2019-02-25 11:16 | NUR ---
CM FAXED REQUEST FOR MEDICAL RECORDS TO [facility] @ F P . JOSE SPOKE WITH DINAH (MEDICAL RECORD @ [facility]), WHO CONFIRMED HAD RECEIVED FAX REQUEST. DINAH STATED SHE WILL BE SENDING RECORDS. CM TO FOLLOW UP NEEDED.
--- NOTE | 2019-02-25 11:22 | NUR ---
PATIENT IS AMBULATING AROUND HALLWAY. NO COMPLAINTS AT THIS TIME. PT SEEMED ANXIOUS ABOUT PLAN OF CARE, INFORMED PATIENT THAT CASE MANAGEMENT IS WORKING ON GETTING RECORDS FROM [facility].
--- NOTE | 2019-02-25 11:31 | NUR ---
Call place again to [facility] hospitalist spoke to Christiana, I informed her that i am still waiitng for Dr Butler call back, Dr. Perry will talk to Dr. Butler.
--- NOTE | 2019-02-25 12:00 | NUR ---
Call place to [facility] medical records spoke to carl, yancy Be, patient has no hospital visit for 2019 and no surgery in [facility] , I talked to patient immediately , he said he had surgery in [facility] in [place] , will relay to dr. Perry.
--- NOTE | 2019-02-25 13:04 | NUR ---
DC PLANNING: SPOKE WITH DR. PALACIOS, HE HAD SPOKE WITH DR. GARCIA WHO WILL BE ACCEPTING PATIENT AND DR. BURTON KATE (NEUROSURGEON). CM CONTACTED [facility]. SPOKE WITH ADMITTING @ . GATHERED INFORMATION AND REQUESTED TO FAX CLINICAL TO F . CM FAXED CLINICAL PACKET WITH [employer]OGRAPHIC AND INSURANCE VERIFICATION. Addendum: 02/25/19 at 0168 by Jamilah Slade CM RECEIVED A CALL FROM MARY LOU AT ADMISSIONS AT [facility] @ STATED THEY ARE CURRENTLY REVIEWING THE CASE. WILL CALL BACK WITH UPDATE. Addendum: 02/25/19 at 1410 by Jamilah Slade CM FOLLOW UP CALL MADE TO CHECK ON STATUS OF TRANSFER REQUEST. PER ADMISSIONS AT [facility], THE COORDINATOR IS STILL REVIEWING THE CASE. WAITING FOR APPROVAL.
[2019-02-25] MEDS ORDERED: HYDROmorphone 1 MG/ML AMP IVP SCH (13:19)
[2019-02-25] MEDS ORDERED: TRAZ-466 PO (14:04)
[2019-02-25] MEDS ORDERED: MORP2SOL18 IVP (14:04)
[2019-02-25] MEDS ORDERED: DEXA4VIA11 IVP (14:04)
[2019-02-25] MEDS ORDERED: ACET-9529 PO (14:04)
--- NOTE | 2019-02-25 14:13 | NUR ---
ADMINISTERED ONE TIME DOSE OF DILAUDID AND AFTERNOON DEXAMETHASONE. PATIENT IS FREQUENTLY AMBULATING IN THE HALLWAY.
[2019-02-25] MEDS ORDERED: MORPHINE SULFATE 4 MG/ML SYR IVP PRN (15:20)
[2019-02-25] MEDS: NACL 0.9% 1,000 ML IV SCH (15:40)
[2019-02-25 16:00] VITALS: BP 153/95
--- NOTE | 2019-02-25 16:30 | NUR ---
Production Supply Equipment Tender Note: I faxed patient's clinical information to Ananda Harrison, fax number per Wire Stitcher Gennaro's request. He stated he already obtained room number and accepting MD at [facility].
--- NOTE | 2019-02-25 16:34 | NUR ---
SPOKE TO SARAH FROM [facility] AND GAVE REPORT ON PATIENTS STATUS.
--- NOTE | 2019-02-25 16:34 | NUR ---
Contacted Ananda Harrison and patient will go to room 2151 per admitting Sameera. Patient will have MRI, and neuro surgeon evaluation.
--- NOTE | 2019-02-25 16:47 | NUR ---
GAVE PM MEDICATION AND MORPHINE 4MG IVP FOR 8/10 PAIN. CHIEF MEDICAL DIRECTOR IS ASSISTING PATIENT INTO CHANGING INTO CLOTHING. DISCHARGE PAPERWORK HAS BEEN SIGNED. ARRIVAL OF TRANSPORTATION FOR PICKUP IS WITHIN AN HOUR.
--- NOTE | 2019-02-25 18:42 | NUR ---
PATIENT HAS BEEN DISCHARGED VIA GURNEY TO [facility]. WRISTBAND HAS BEEN REMOVED. PATIENT IS GOING TO FACILITY WITH RIGHT IJ.
== END 2019-02-25 18:45 | disposition short-term general hospital (02) | DRG 74 ==
LOC: MED 20:17 → MTU 02-22 07:27
PROVIDERS: ADMIT General Practice; ATTEND General Practice
DX: G83.4 Cauda equina syndrome (principal); E44.0 Moderate protein-calorie malnutrition; G95.20 Unspecified cord compression; I10 Essential (primary) hypertension; J45.909 Unspecified asthma, uncomplicated; F41.9 Anxiety disorder, unspecified; I25.10 Atherosclerotic heart disease of native coronary artery without angina pectoris; G90.9 Disorder of the autonomic nervous system, unspecified; R10.9 Unspecified abdominal pain; Z68.32 Body mass index [BMI] 32.0-32.9, adult; Z88.8 Allergy status to other drugs, medicaments and biological substances; I25.2 Old myocardial infarction; Z90.49 Acquired absence of other specified parts of digestive tract; Z95.5 Presence of coronary angioplasty implant and graft; Z59.0 Homelessness; Z91.19 Patient's noncompliance with other medical treatment and regimen
CPT/HCPCS: 36415; 70450; 71045; 72131; 80048; 80053; 80305; 81003; 82550; 83036; 83605; 83690; 83735; 83880; 84100; 84439; 84443; 84484; 85025; 85610; 85730; 86886; 86900; 86901; 87040; 87081; 87086; 93005; 94640; 96361; 96372; 96374; 96375; 96376; 97110; 97116; 97530; 99285; G0482; J0171; J1100; J1170; J1200; J1644; J2060; J2270; J2405; J2930; J7030; Q9967

== ENCOUNTER 2019-02-26 19:22 | Inpatient (IN) | payer OTHER ==
[~2019-02-26] VITALS: Ht 188 cm; Wt 99.8 kg
[~2019-02-26 19:22] MED LIST: ACET-9529 PO; ASPI81CT95 PO; BACL10TA4 PO; CLOP75TA55 PO; DEXA4VIA11 IVP; GABA-638 PO; LID5T TP; MORP2SOL18 IVP; TRAZ-466 PO
--- NOTE | 2019-02-26 21:09 | NUR ---
Received report via phone call from Maria Elena pinto [facility]. Addendum: 02/27/19 at 0523 by Elizabeth Dunne RN Pt scheduled to be picked up at 2300 from [facility].
--- NOTE | 2019-02-26 23:25 | NUR ---
PT IS AMBULATORY BUT HAS UNSTEADY GAIT. PT WALKS AROUND THE UNIT A LOT AND IS NOT COMPLIANT WHEN TOLD TO GO TO HIS ROOM.
--- NOTE | 2019-02-26 23:25 | NUR ---
Patient received from Ananda Rojas by direct admit. Pt arrived by ambulance from [place]. Pt Aox4. Pt able to ambulate but has unsteady gait. Pt has complaints of pain, will medicate. No SOB or respiratory distress. Afebrile. Pt has Right EJ 22 gauge, patent and intact. Pt skin is warm, dry and intact. No open wounds. MRSA swab done and sent to lab. Dr. Astudillo came in to assess pt. Admit orders in. Bed lock and in low position. Pt on seizure precaution. Safety measures in place. Call light within reach. Initial assessment done. Will continue to monitor patient.
[2019-02-26] MEDS ORDERED: HYDROcodone/APAP 7.5/325 MG 1 TAB PO PRN (23:45)
[2019-02-26] MEDS ORDERED: ACETAMINOPHEN 325 MG TAB PO PRN (23:45)
[2019-02-26] MEDS ORDERED: ONDANSETRON 4 MG/2 ML VIAL IM/IVP PRN (23:45)
[2019-02-26] MEDS ORDERED: MORPHINE SULFATE 2 MG/ML SYR IVP PRN (23:45)
[2019-02-27] VITALS: BP 114/72
[2019-02-27] MEDS ORDERED: MORPHINE SULFATE 4 MG IVP PRN (00:15)
--- NOTE | 2019-02-27 00:15 | NUR ---
Pt thought about going AMA. Pt changed his mind after given reassurance of care.
--- NOTE | 2019-02-27 00:30 | NUR ---
PT SLEEPING COMFORTABLY BUT AROUSABLE. NO S/S OF DISTRESS NOTED. WILL CONTINUE TO MONITOR. Addendum: 02/28/19 at 0106 by Rikki Mukherjee RN WRONG DATE.
[2019-02-27] MEDS: MORPHINE SULFATE 4 MG/ML SYR IVP PRN ×5 (01:25→20:29)
--- NOTE | 2019-02-27 01:25 | NUR ---
Pt received morphine via IV push at this time. Will continue to monitor.
[2019-02-27] MEDS: traZODone 50 MG TAB PO PRN ×2 (01:26→20:29)
--- NOTE | 2019-02-27 01:26 | NUR ---
Trazadone given at this time. Will continue to monitor pt.
[2019-02-27] MEDS: NACL 0.9% 1,000 ML IV SCH (01:38)
--- NOTE | 2019-02-27 03:06 | NUR ---
Rounds done. Pt sleeping in bed comfortably. Visible chest rise and fall noted. Will continue to monitor pt.
[2019-02-27] MEDS ORDERED: HYDROcodone/APAP 7.5/325 MG 1 TAB PO PRN (04:00)
[2019-02-27] MEDS ORDERED: HYDROCODONE PO SCH (04:00)
[2019-02-27] MEDS ORDERED: ACETAMINOPHEN PO SCH (04:00)
--- NOTE | 2019-02-27 05:16 | NUR ---
Morphine given via IV push per pt request. Will continue to monitor pt.
--- NOTE | 2019-02-27 07:04 | NUR ---
Pt in stable condition. Will endorse to AM shift nurse for continuity of care.
--- NOTE | 2019-02-27 07:15 | NUR ---
RECEIVED REPORT FROM BELLOWS FILLER NURSE. PATIENT LYING DOWN IN BED SLEEPING, AROUSABLE BY VOICE. NO DISTRESS NOTED. PAIN WITHIN TOLERABLE AT THIS TIME. AAOX4, CALM, COOPERATIVE, SKIN COLOR APPROPRIATE TO ETHNICITY, WARM TO TOUCH. SKIN COLOR APPROPRIATE TO ETHNICITY, WARM TO TOUCH. SKIN INTACT. IV SITE INTACT, PATENT, AND INFUSING IVF PER MD ORDERS. ABD SOFT. REVIEWED PLAN OF CARE WITH PATIENT. PATIENT VERBALIZED UNDERSTANDING. SAFETY MEASURES IN PLACE, CALL LIGHT WITHIN REACH. WILL CONTINUE TO MONITOR.
[2019-02-27 08:00] VITALS: BP 123/82
--- NOTE | 2019-02-27 08:16 | NUR ---
PATIENT HAS BEEN SCREENED AND CATEGORIZED LOW NUTRITION RISK. PATIENT WILL BE SEEN WITHIN 7 DAYS OF ADMISSION. 03/04/[address]
[2019-02-27] MEDS ORDERED: BACLOFEN 10 MG PO SCH (09:00)
[2019-02-27] MEDS ORDERED: NON-FORMULARY ITEM (Clopidogrel Bisulfate (Clopidogrel) 75 MG) PO SCH (09:00)
[2019-02-27] MEDS: LIDOCAINE 5% 1 EA PATCH TP SCH ×2 (09:00→10:16)
[2019-02-27] MEDS ORDERED: NON-FORMULARY ITEM (Aspirin 81 MG) PO SCH (09:00)
[2019-02-27] MEDS: CLOPIDOGREL 75 MG TAB PO SCH (10:13)
[2019-02-27] MEDS: GABAPENTIN 300 MG CAP PO SCH ×2 (10:14→20:28)
[2019-02-27] MEDS: ATORVASTATIN 20 MG TAB PO SCH (10:14)
[2019-02-27] MEDS: DULoxetine 30 MG CAPDR PO SCH (10:14)
[2019-02-27] MEDS: ASPIRIN 81 MG TAB.CHEW PO SCH (10:14)
[2019-02-27] MEDS: DOCUSATE SODIUM 100 MG GELCAP PO SCH ×2 (10:14→20:29)
[2019-02-27] MEDS: BACLOFEN 10 MG TAB PO SCH ×3 (10:14→16:38)
--- NOTE | 2019-02-27 10:19 | NUR ---
PATIENT SITTING IN BED EATING BREAKFAST. NO DISTRESS NOTED. SCHEDULED MEDICATIONS DUE GIVEN. REFUSED LIDOCAINE PATCH BECAUSE PATIENT SAYS IT DOES NOT WORK. WILL CONTINUE TO MONITOR.
[2019-02-27] MEDS ORDERED: LORazepam 2 MG/ML VIAL IM/IVP PRN (10:50)
--- NOTE | 2019-02-27 11:30 | NUR ---
PATIENT WALKING AROUND [facility] HALLWAYS, TRIED TO LEAVE [facility] UNIT REPORTS FEELING VERY ANXIOUS AND SAYING "I HAVE REAL BAD ANXIETY", PATIENT IS SHAKY. NOTIFIED MD. SECURITY AWARE. PATIENT BACK TO BACK AND CALMED DOWN.
--- NOTE | 2019-02-27 13:33 | NUR ---
PATIENT SITTING DOWN IN BED SLEEPING, AROUSABLE BY VOICE AND TOUCH. CONDITION UNCHANGED . WILL CONTINUE TO MONITOR.
--- NOTE | 2019-02-27 15:40 | NUR ---
PATIENT TAKING A SHOWER, NO DISTRESS NOTED. CONDITION UNCHANGED. WILL CONTINUE TO MONITOR.
[2019-02-27 16:00] VITALS: BP 129/85
--- NOTE | 2019-02-27 17:50 | NUR ---
PATIENT AMBULATING AROUND [facility] HALLWAYS WITH STEADY GAIT. WILL CONTINUE TO MONITOR.
--- NOTE | 2019-02-27 19:16 | NUR ---
GAVE REPORT TO MACHINE CELL TUBER NURSE FOR CONTINUITY OF CARE. PATIENT IN STABLE CONDITION.
--- NOTE | 2019-02-27 19:17 | NUR ---
REPORT RECEIVED FROM AM NURSE AT BEDSIDE. PT IN STABLE CONDITION. AAOX4. INTRODUCED SELF TO PT. BOARD UPDATED. NO COMPLAINTS OF PAIN. NO SOB. AFEBRILE. PT IS AMBULATORY BUT HAS UNSTEADY GAIT. IV SITE R EJ 22G SL DUE TO PATIENT REFUSING IV FLUIDS PATENT AND INTACT. SKIN WARM, DRY, AND INTACT WITH NO OPEN WOUNDS. BED LOCKED IN LOW POSITION. CALL ANG WITHIN REACH. SAFETY PRECAUTION IN PLACE. ALL NEEDS MET AT THIS TIME.
--- NOTE | 2019-02-27 19:41 | NUR ---
ATIVAN GIVEN FOR ANXIETY. PT TOLERATED WELL.
--- NOTE | 2019-02-27 20:29 | NUR ---
DOCUSATE, NEURONTIN, AND TRAZODONE GIVEN PO. MORPHINE GIVEN FOR 8/10 BACK PAIN. PT TOLERATED WELL.
--- NOTE | 2019-02-27 21:40 | NUR ---
PT AWAKE AND ALERT WALKING IN THE HALLWAY. NO S/S OF DISTRESS NOTED.
--- NOTE | 2019-02-27 23:30 | NUR ---
PT SLEEPING COMFORTABLY BUT AROUSABLE. NO S/S OF DISTRESS NOTED. WILL CONTINUE TO MONITOR.
[2019-02-28] VITALS: BP 127/76
[2019-02-28] MEDS: NACL 0.9% 1,000 ML IV SCH (01:05)
--- NOTE | 2019-02-28 01:05 | NUR ---
PATIENT REFUSED FLUIDS. IV IS SL.
--- NOTE | 2019-02-28 02:45 | NUR ---
PT SLEEPING COMFORTABLY BUT AROUSABLE. NO S/S OF DISTRESS NOTED. RESPIRATIONS EVEN, UNLABORED, AND WNL. WILL CONTINUE TO MONITOR.
[2019-02-28] MEDS: MORPHINE SULFATE 4 MG/ML SYR IVP PRN (04:01)
--- NOTE | 2019-02-28 04:01 | NUR ---
MORPHINE GIVEN FOR 8/10 BACK PAIN. PT TOLERATED WELL.
--- NOTE | 2019-02-28 05:40 | NUR ---
PT SLEEPING COMFORTABLY BUT AROUSABLE. NO S/S OF DISTRESS NOTED. NO COMPLAINTS OF PAIN. NO SOB. AFEBRILE. WILL CONTINUE TO MONITOR.
--- NOTE | 2019-02-28 07:10 | NUR ---
RECEIVED REPORT FROM CREEL CLERK NURSE MAUDE FOR CONTINUITY OF CARE. PT IN STABLE CONDITION. RESPIRATIONS EVEN AND UNLABORED, ROOM AIR. IV INTACT AND PATENT. SAFETY MEASURES IN PLACE. BED IN LOW POSITION. CALL LIGHT AT BED SIDE. WILL CONTINUE TO MONITOR.
--- NOTE | 2019-02-28 08:00 | NUR ---
PT REFUSED VITALS AT THIS TIME. PT IN STABLE CONDITION.
[2019-02-28] MEDS: CLOPIDOGREL 75 MG TAB PO SCH (09:00)
[2019-02-28] MEDS: BACLOFEN 10 MG TAB PO SCH ×2 (09:00→14:12)
[2019-02-28] MEDS: LIDOCAINE 5% 1 EA PATCH TP SCH (09:00)
[2019-02-28] MEDS: DULoxetine 30 MG CAPDR PO SCH (09:00)
[2019-02-28] MEDS: DOCUSATE SODIUM 100 MG GELCAP PO SCH (09:00)
[2019-02-28] MEDS: ASPIRIN 81 MG TAB.CHEW PO SCH (09:00)
[2019-02-28] MEDS: GABAPENTIN 300 MG CAP PO SCH (09:00)
[2019-02-28] MEDS: ATORVASTATIN 20 MG TAB PO SCH (09:00)
--- NOTE | 2019-02-28 09:16 | NUR ---
PT REFUSED 0900 ORDERED DUE MEDICATIONS AT THIS TIME. PT IN STABLE CONDITION.
[2019-02-28] MEDS ORDERED: MORPHINE SULFATE 2 MG/ML SYR IVP PRN (10:50)
--- NOTE | 2019-02-28 12:37 | NUR ---
PER PT REQUEST ORDERED 2 TUNA SANDWICHES, 2 BAGS CHIPS, AND 2 SODAS FROM FNS.
--- NOTE | 2019-02-28 14:30 | NUR ---
PT SIGNED AMA AT THIS TIME.
--- NOTE | 2019-02-28 14:35 | NUR ---
REMOVED RIGHT EJ LUMEN INTACT. REMOVED ID BAND. PT TOLERATED WELL.
--- NOTE | 2019-02-28 14:50 | NUR ---
PT WALKED TO LOBBY IN STABLE CONDITION.
[2019-02-28] MEDS ORDERED: DULO30EC PO (15:22)
[2019-02-28] MEDS ORDERED: HYDROcodone/APAP 10/325 MG 1 TAB TAB PO SCH (16:00)
== END 2019-02-28 14:50 | disposition left against medical advice (07) | DRG 552 ==
LOC: MTU 23:25
PROVIDERS: ADMIT General Practice; ATTEND General Practice
DX: M51.27 Other intervertebral disc displacement, lumbosacral region (principal); M54.9 Dorsalgia, unspecified; G89.29 Other chronic pain; I25.10 Atherosclerotic heart disease of native coronary artery without angina pectoris; J45.909 Unspecified asthma, uncomplicated; F32.9 Major depressive disorder, single episode, unspecified; G47.00 Insomnia, unspecified; E02 Subclinical iodine-deficiency hypothyroidism; Z53.29 Procedure and treatment not carried out because of patient's decision for other reasons; Z95.5 Presence of coronary angioplasty implant and graft; Z98.1 Arthrodesis status; Z90.49 Acquired absence of other specified parts of digestive tract; Z88.8 Allergy status to other drugs, medicaments and biological substances; Z59.0 Homelessness; Z91.14 Patient's other noncompliance with medication regimen; Z76.5 Malingerer [conscious simulation]
CPT/HCPCS: 87081; J2060; J2270; J7030